=== PATIENT | female | born 1995 | race Caucasian/White ===

== ENCOUNTER 2021-03-09 21:46 | Observation (INO) | payer BC ==
[2021-03-09 22:05] VITALS: BMI 36.3
[2021-03-09] MEDS ORDERED: hydrALAZINE 20 MG/ML VIAL SLOW IVP PRN (22:34)
[2021-03-09] MEDS ORDERED: Ondansetron ODT 4 MG TAB SL PRN (22:36)
[2021-03-09] MEDS ORDERED: Ondansetron PF 4 MG/2 ML Vial IVP PRN (22:36)
[2021-03-09] MEDS ORDERED: Lactated Ringer's 1,000 ML IV SCH ×2 (22:45)
[2021-03-09 22:52] LABS: Bilirubin Neg (Negative); Blood, Urine Negative (Negative); Clarity Clear (Clear); Glucose, Urine (Dipstick) Normal (Negative); Ketone, Urine 50 mg/dL (Negative); Leukocyte 25 (Negative); Nitrite Negative (Negative); Protein, Urine (Dipstick) 15 mg/dl (Neg-Trace)
[2021-03-09 22:55] LABS: Urine Culture Reflex No No
[2021-03-09 23:10] LABS: Bacteria/HPF None Seen HPF (None Seen); RBC/HPF None Seen HPF (0-3); Squamous Epithelial None Seen HPF (0-3); WBC/HPF 0-3 HPF (0-3)
[2021-03-10] MEDS: Butorphanol Tartrate 1 MG/ML VIAL SLOW IVP PRN ×2 (01:03→07:16)
[2021-03-10] MEDS ORDERED: Acetaminophen 500 MG TAB PO PRN (08:53)
[2021-03-10 09:26] LABS: SARS-CoV-2 NAA Rapid Test Not Detected (NotDetected)
[2021-03-10 11:23] VITALS: BP 106/64; TEMP 98.9
== END 2021-03-10 15:50 | disposition home or self-care (01) ==
LOC: CSHLD/OP 21:46 → CSHLD 21:47
PROVIDERS: ADMIT Obstetrics & Gynecology; ATTEND Obstetrics & Gynecology
DX: O47.03 False labor before 37 completed weeks of gestation, third trimester (principal); O99.891 Other specified diseases and conditions complicating pregnancy; R11.10 Vomiting, unspecified; Z3A.33 33 weeks gestation of pregnancy; Z20.822 Contact with and (suspected) exposure to COVID-19; Z79.899 Other long term (current) drug therapy
CPT/HCPCS: 0240U; 76815; 81001; 87480; 87510; 87660; 96374; 96375; 96376; 99285; G0378; J0595; J2405; J7120

== ENCOUNTER 2021-04-10 11:53 | Outpatient (CLI) | payer BC ==
[2021-04-11 11:22] LABS: SARS-CoV-2 PCR by NAA Not Detected (NotDetected)
== END 2021-04-10 11:54 | disposition home or self-care (01) ==
LOC: CSHLAB 11:53
PROVIDERS: ATTEND Obstetrics & Gynecology
DX: Z20.822 Contact with and (suspected) exposure to COVID-19 (principal)
CPT/HCPCS: U0003; U0005

== ENCOUNTER 2021-04-14 07:51 | Inpatient (IN) | payer OTHER, BC ==
[2021-04-14] MEDS ORDERED: Bupivacaine 0.25% HCL 30 ML VIAL ONE (14:37)
[2021-04-14] MEDS ORDERED: Bupivacaine PF 0.5% 30 ML VIAL ONE (14:37)
[2021-04-14] MEDS ORDERED: Acetaminophen 500 MG TAB PO PRN (23:37)
[2021-04-14] MEDS ORDERED: Ibuprofen 800 MG TAB PO PRN (23:37)
[2021-04-14] MEDS ORDERED: Lidocaine 1% (PF) 30 ML VIAL SC PRN (23:37)
[2021-04-14] MEDS ORDERED: Misoprostol 200 MCG TAB PR PRN (23:37)
[2021-04-14] MEDS ORDERED: Butorphanol Tartrate 1 MG/ML VIAL SLOW IVP PRN (23:37)
[2021-04-14] MEDS ORDERED: Promethazine HCl 25 MG/ML VIAL IM PRN (23:37)
[2021-04-14] MEDS ORDERED: Docusate 100 MG CAP PO PRN (23:37)
[2021-04-14] MEDS ORDERED: HYDROcodone/Acetaminophen 5/325 mg Tablet PO PRN ×2 (23:37)
[2021-04-14] MEDS ORDERED: Diphenoxylate HCl/Atropine Tablet PO PRN ×2 (23:37)
[2021-04-14] MEDS ORDERED: NS w/ Oxytocin 30 units 500 ML IV SCH ×2 (23:37→23:59)
[2021-04-14] MEDS ORDERED: Zolpidem Tartrate 5 MG TAB PO PRN (23:37)
[2021-04-14] MEDS ORDERED: hydrALAZINE 20 MG/ML VIAL SLOW IVP PRN (23:37)
[2021-04-14 23:56] VITALS: BMI 38.0
[2021-04-14] MEDS ORDERED: NS w/ Oxytocin 30 units 500 ML IVPB SCH (23:59)
[2021-04-15 00:42] LABS: Hemoglobin 11.7 g/dL (12.0-15.5); Mean Corpuscular HGB CONC 32.9 g/dL (32.0-36.0); Mean Corpuscular Hemoglobin 31.6 pg (27.0-33.0); Mean Corpuscular Volume 96.2 fl (81.6-98.3); Mean Platelet Volume 9.7 fl (7.4-10.4); Platelet Count 360 10x3/uL (150-450); RBC Distribution Width 14.2 % (11.5-14.5); White Blood Cell (WBC) Count 13.2 10x3/uL (3.5-10.5)
[2021-04-15 01:11] LABS: Syphilis Antibody Nonreactive (Nonreactive); Syphilis Antibody Index 0.04 S/CO (<1.00 Non-Reactive)
[2021-04-15 01:12] LABS: HIV (1/2) Antibody/Antigen Non-Reactive (NonReactive); HIV 1/2 INDEX 0.11 S/CO (<1.00); Hep B Surf Ag Non-Reactive S/CO (NonReactive)
[2021-04-15 01:27] LABS: HBSAg Index 0.18 S/CO (0-0.99)
[2021-04-15] MEDS: Misoprostol 100 MCG TAB VAG SCH ×2 (06:37→10:39)
[2021-04-15] MEDS: Lactated Ringer's 1,000 ML IV SCH ×3 (09:40→15:44)
[2021-04-15] MEDS ORDERED: Terbutaline Sulfate 1 MG/ML VIAL ONE (11:20)
[2021-04-15] MEDS ORDERED: Fentanyl 2 mcg/Bup 0.1% Cadd 100 ML ONE (15:30)
[2021-04-15] MEDS ORDERED: Promethazine HCl 25 MG/ML VIAL IM PRN (15:59)
[2021-04-15] MEDS ORDERED: Acetaminophen 325 MG TAB PO PRN (15:59)
[2021-04-15] MEDS ORDERED: Ondansetron PF 4 MG/2 ML Vial IVP PRN (15:59)
[2021-04-15] MEDS ORDERED: Hydrocerin (Eucerin) Cream 120 gm Jar TOP PRN (15:59)
[2021-04-15] MEDS ORDERED: Lactated Ringer's 500 ML IV PRN (15:59)
[2021-04-15] MEDS ORDERED: diphenhydrAMINE 50 MG/ML VIAL IVP PRN (15:59)
[2021-04-15] MEDS ORDERED: Naloxone HCl 0.4 mg/ml Vial IVP PRN ×2 (15:59)
[2021-04-15] MEDS ORDERED: ePHEDrine Sulfate 50 MG/10 ML VIAL SLOW IVP PRN (15:59)
[2021-04-15] MEDS ORDERED: Communication Order-Pharmacy FS SCH (16:00)
[2021-04-15] MEDS: Ondansetron PF 4 MG/2 ML Vial IVP PRN (16:56)
[2021-04-15] MEDS: Fentanyl 2 mcg/Bupivacaine 0.1% Cassette 100 ML EPIDURAL SCH (21:24)
[2021-04-16] MEDS: Lactated Ringer's 1,000 ML IV SCH (00:24)
[2021-04-16] MEDS: Fentanyl 2 mcg/Bupivacaine 0.1% Cassette 100 ML EPIDURAL SCH ×3 (02:55→15:26)
[2021-04-16] MEDS: Ondansetron PF 4 MG/2 ML Vial IVP PRN (12:51)
[2021-04-16] MEDS ORDERED: Bupivacaine 0.25% HCL 30 ML VIAL ONE (13:17)
[2021-04-16] MEDS ORDERED: Fentanyl 2 mcg/Bup 0.1% Cadd 100 ML ONE (15:20)
[2021-04-16] MEDS ORDERED: Lidocaine 1% (PF) 30 ML VIAL ONE (20:01)
[2021-04-16] MEDS ORDERED: NS w/ Oxytocin 30 units 500 ML IV SCH (23:45)
[2021-04-16] MEDS ORDERED: hydrALAZINE 20 MG/ML VIAL SLOW IVP PRN (23:54)
[2021-04-16] MEDS ORDERED: Preparation H Ointment 28 GM TUBE PR PRN (23:54)
[2021-04-16] MEDS ORDERED: Misoprostol 200 MCG TAB VAG PRN (23:54)
[2021-04-16] MEDS ORDERED: Zolpidem Tartrate 5 MG TAB PO PRN (23:54)
[2021-04-16] MEDS ORDERED: diphenhydrAMINE 25 MG CAP PO PRN (23:54)
[2021-04-16] MEDS ORDERED: Benzocaine-Menthol 82.5 ML CAN TOP PRN (23:54)
[2021-04-16] MEDS ORDERED: Bisacodyl 10 MG SUPP PR PRN (23:54)
[2021-04-16] MEDS ORDERED: Milk Of Magnesia 30 ML UDCUP PO PRN (23:54)
[2021-04-16] MEDS ORDERED: Boostrix 0.5 ML (Tdap) VIAL IM ONE (23:54)
[2021-04-16] MEDS ORDERED: Ondansetron PF 4 MG/2 ML Vial IVP PRN (23:54)
[2021-04-16] MEDS ORDERED: Witch Hazel-Glycerin 1 EACH JAR TOP PRN (23:55)
[2021-04-17] MEDS: HYDROcodone/Acetaminophen 5/325 mg Tablet PO PRN ×3 (03:20→16:18)
[2021-04-17] MEDS: Ibuprofen 800 MG TAB PO SCH ×3 (05:34→21:31)
[2021-04-17] MEDS: Docusate Calcium (SURFAK) 240 MG CAP PO SCH ×2 (08:18→21:31)
[2021-04-17] MEDS: Ferrous Sulfate 325 MG TAB PO SCH ×2 (08:20→15:54)
[2021-04-18] MEDS: Ibuprofen 800 MG TAB PO SCH ×2 (05:23→15:12)
[2021-04-18] MEDS: HYDROcodone/Acetaminophen 5/325 mg Tablet PO PRN ×2 (08:48→15:12)
[2021-04-18] MEDS: Docusate Calcium (SURFAK) 240 MG CAP PO SCH (08:48)
[2021-04-18] MEDS: Ferrous Sulfate 325 MG TAB PO SCH (08:51)
[2021-04-18 09:16] VITALS: BP 108/57; TEMP 97.8
== END 2021-04-18 15:54 | disposition home or self-care (01) | DRG 807 ==
LOC: CSHLD 23:22 → CSHPP 04-17 03:36
PROVIDERS: ADMIT Obstetrics & Gynecology; ATTEND Obstetrics & Gynecology
PROC: 10E0XZZ Delivery of Products of Conception, External Approach (ICD-10-PCS; principal; 2021-04-16)
PROC: 0HQ9XZZ Repair Perineum Skin, External Approach (ICD-10-PCS; 2021-04-16)
DX: O70.0 First degree perineal laceration during delivery (principal); Z37.0 Single live birth; Z3A.39 39 weeks gestation of pregnancy
CPT/HCPCS: 36415; 51702; 85027; 86780; 86850; 86900; 86901; 87340; 87389; J0595; J2405; J2590; J7120; S0020